=== PATIENT | female | born 1965 | race Two or more races ===

== ENCOUNTER 2022-09-10 09:30 | Outpatient (REF) | payer OTHER, SELFPAY ==
[2022-09-10 12:59] LABS: Vitamin B12 262 pg/mL (200-900)
== END 2022-09-10 09:31 | disposition home or self-care (01) ==
LOC: HO.LAB 09:30
PROVIDERS: PCP Internal Medicine; Visit Provider Psychiatry & Neurology Neurology
DX: G31.84 Mild cognitive impairment of uncertain or unknown etiology (principal)
CPT/HCPCS: 36415; 82607; 82746

== ENCOUNTER → 2022-09-30 10:00 | Outpatient (REF) | payer OTHER, SELFPAY | LOC: HO.SL 10:00 | PROVIDERS: PCP Internal Medicine; Visit Provider Psychiatry & Neurology Neurology | DX: Z13.89 Encounter for screening for other disorder (principal) ==

== ENCOUNTER → 2022-10-16 13:35 | Outpatient (BNVA) | payer OTHER, SELFPAY | PROVIDERS: PCP Internal Medicine; Visit Provider Dietitian, Registered | DX: E66.9 Obesity, unspecified (principal); Z71.3 Dietary counseling and surveillance | CPT/HCPCS: 97802 ==

== ENCOUNTER → 2022-10-21 11:59 | Outpatient (REF) | payer OTHER, SELFPAY | LOC: HO.SL 11:59 | PROVIDERS: PCP Internal Medicine; Visit Provider Psychiatry & Neurology Neurology | DX: G47.33 Obstructive sleep apnea (adult) (pediatric) (principal) | CPT/HCPCS: 95806 ==